=== PATIENT | female | born 2000 | race African-American/Black ===

== ENCOUNTER 2024-05-20 17:42 | Emergency (ER) | payer MEDICAID, SELFPAY ==
[2024-05-20 18:40] VITALS: BP 127/78; PULSE 69; RESP 18; TEMP 36.6; O2SAT 98; BMI 35.9
--- NOTE | 2024-05-20 18:44 | ED.GENADULT ---
HPI - General Adult General Chief complaint: Nausea/Vomiting/Diarrhea Stated complaint: dehydration Time Seen by Provider: 05/20/24 22:56 Related Data Allergies Allergy/AdvReac Type Severity Reaction Status Date / Time shellfish derived [shellfish] Allergy Hives Verified 05/20/24 18:43 [facility] Social History Social History Smoked in Last 30 Days: No Use of substances other than those prescribed or required for medical reasons: No Advance Directives: No Advance Directives Information Provided: No Do you have a plan to hurt others: No Plan Patient : No Physical Exam ED Vital Signs: Vital Signs - 24 hr 05/20/24 18:40 05/20/24 20:33 Temperature 98 F 98.2 F Pulse Rate 69 67 Respiratory Rate 18 16 Blood Pressure 127/78 121/78 Pulse Oximetry 98 98 Oxygen Delivery Method Room Air Room Air BMI result Body Mass Index 35.9 Course Course Course Narrative: This is a Rapid Medical Examination (RME) performed by Dana Joseph PA-C in triage. Full HPI, ROS, assessment and treatment plan per primary provider in the Main ED. 23 yo female 2 wks s/p bariatric surgery in [place] here for eval of dehydration . her diet was recently advances, taking in fluids however has no appetite for solids. called her surgeon, advised to come to ED for IV fluids. no vomiting or diarrhea. Plan: labs Medications Administered Discontinued Medications Generic Name Dose Route Start Last Admin Trade Name Freq PRN Reason Stop Dose Admin Sodium Chloride 1,000 mls @ 999 mls/hr 05/20/24 23:45 05/21/24 00:01 Ns IV 05/21/24 00:45 999 mls/hr .Q1H1M CONCEPCION Administration Medical Decision Making Lab Data 05/20/24 18:55 05/20/24 18:55 Labs: Lab Results 05/20/24 Range/Units 18:55 WBC 13.2 H (4.8-10.8) X10*3/uL RBC 5.01 (4.20-5.50) X10*6/uL Hgb 13.3 (12.0-16.0) g/dl Hct 40.4 (37.0-47.0) % MCV 80.6 (80.0-98.0) fL MCH 26.5 L (27.0-33.0) pg MCHC 32.9 (31.0-35.0) g/dl RDW 12.8 (11.0-16.0) % Plt Count 377 (160-400) X10*3/uL MPV 10.5 (9.4-12.3) fL Immature Gran % (Auto) 0.3 (0.0-0.4) % Neut % (Auto) 74.8 H (45-73) % Lymph % (Auto) 19.1 L (20-40) % [place] % (Auto) 4.9 (2-11) % Eos % (Auto) 0.6 (0-4) % Baso % (Auto) 0.3 (0-2) % Lymph # (Auto) 2.5 (1.2-4.9) X10*3/uL [place] # (Auto) 0.7 (0.1-1.2) X10*3/uL Eos # (Auto) 0.1 (0.0-0.4) X10*3/uL Baso # (Auto) 0.0 (0.0-0.2) X10*3/uL Abs Immat Gran (auto) 0.04 H (0.00-0.03) X10*3/uL Absolute Neuts (auto) 9.9 H (2.0-8.3) x10*3/uL Absolute Nucleated RBC 0.000 (0.0-0.012) X10*3/uL Nucleated RBC % (auto) 0.0 (0.0-0.2) /100WBC Sodium 138 (135-145) mmol/L Potassium 4.1 (3.3-5.1) mmol/L Chloride 103 (96-108) mmol/L Carbon Dioxide 23 (22-29) mmol/L Anion Gap 16 (12-20) BUN 11 (9-16) mg/dL Creatinine 0.72 (0.5-1.4) mg/dL Estim Creat Clear Calc 136.9 Estimated GFR > 60 Random Glucose 64 (60-115) mg/dL Calcium 9.8 (8.4-10.2) mg/dL Magnesium 1.8 (1.6-2.6) mg/dL Total Bilirubin 0.5 (0.0-1.0) mg/dL AST 21 (5-31) U/L ALT 23 (0-31) U/L Alkaline Phosphatase 70 (39-117) U/L Total Protein 8.4 H (6.5-8.0) g/dL Albumin 4.5 (3.5-5.0) g/dL Lipase 30 (8-78) U/L Beta HCG, Quant < 2 mIU/mL Discharge Plan Discharge Clinical Impression: Acid reflux Patient Disposition: Home, Self-Care Instructions: Dehydration (ED) Referrals: Physician,Unknown J [Physician] - 05/25/24 (Please follow-up with ) Print Language: Icelandic
[2024-05-20 18:59] LABS: MANUAL DIFF FLAG NO
[2024-05-20 19:20] LABS: Alanine Aminotransferase 23 U/L (0-31); Albumin Level 4.5 g/dL (3.5-5.0); Alkaline Phosphatase 70 U/L (39-117); Anion Gap 16 (12-20); Aspartate Amino Transferase 21 U/L (5-31); Bilirubin Total 0.5 mg/dL (0.0-1.0); Blood Urea Nitrogen 11 mg/dL (9-16); Calcium 9.8 mg/dL (8.4-10.2); Carbon Dioxide 23 mmol/L (22-29); Chloride 103 mmol/L (96-108); Creatinine Clr Calc Pharmacy 136.9; Estimated Glomerular Filt Rate > 60; Glucose Random 64 mg/dL (60-115); Lipase 30 U/L (8-78); Magnesium 1.8 mg/dL (1.6-2.6); Potassium 4.1 mmol/L (3.3-5.1); Sodium 138 mmol/L (135-145); Total Protein 8.4 g/dL (6.5-8.0)
[2024-05-20 19:21] LABS: Basophils Percent Auto 0.3 % (0-2); Eosinophils Absolute Auto 0.1 X10*3/uL (0.0-0.4); Eosinophils Percent Auto 0.6 % (0-4); Hematocrit 40.4 % (37.0-47.0); Hemoglobin 13.3 g/dl (12.0-16.0); Imm Gran Abs Auto 0.04 X10*3/uL (0.00-0.03); Imm Gran Pct Auto 0.3 % (0.0-0.4); Lymphocytes Absolute Auto 2.5 X10*3/uL (1.2-4.9); Lymphocytes Percent Auto 19.1 % (20-40); Mean Corpuscular HGB Conc 32.9 g/dl (31.0-35.0); Mean Corpuscular Hemoglobin 26.5 pg (27.0-33.0); Mean Corpuscular Volume 80.6 fL (80.0-98.0); Mean Platelet Volume 10.5 fL (9.4-12.3); Monocytes Absolute Auto 0.7 X10*3/uL (0.1-1.2); Monocytes Percent Auto 4.9 % (2-11); Neutrophils Absolute Auto 9.9 x10*3/uL (2.0-8.3); Neutrophils Percent Auto 74.8 % (45-73); Platelet Count 377 X10*3/uL (160-400); Red Blood Count 5.01 X10*6/uL (4.20-5.50); Red Cell Distribution Width 12.8 % (11.0-16.0); White Blood Count 13.2 X10*3/uL (4.8-10.8)
[2024-05-20 19:29] LABS: HCG Quantitative < 2 mIU/mL
[2024-05-20 20:33] VITALS: BP 121/78; PULSE 67; RESP 16; TEMP 36.8; O2SAT 98
--- OUTSIDE RECORDS SUMMARY | 2024-05-20 22:49 | XMS_ITS | Clinical Summary ---
Author Organization [facility] spital Address [address] [place] [address] Phone Care Team Providers Care Stretcher Operator Name Role Phone Christina Nguyen Fabby SHALE PLANER OPERATOR HELPER Unavailable [phone] Shaylee Pace Primary Care Provider [phone] [facility] Unavailable Medications chlorhexidine (Peridex) 0.12 % solution Dose: 0.018 g, Dose Amount: 15 mL, Swish & Spit, BID, Special Instructions: start tomorrow. morning and night swish and spit; do not swallow. use x 1 week, Dispense Quantity: 473 mL, Entered: 10/06/21 14:46:00 EDT, [facility]/pharmacy #[id number] 10/06/2021 Active Immunizations Name Administration Dates Next Due DTaP 11/13/2005, 3,07/17/2002,05/19/2002, 2001 HPV, Unspecified 10/15/2012 Hep A, Unspecified 01/02/2010,09/27/2008 Hep B, Unspecified 07/17/2002,05/19/2002, 002 HiB, unspecified 01/27/2003,05/19/2002, 2 IPV 11/13/2005,07/17/2002,05/19/2002 ,2001 Influenza, Unspecified 02/14/2012,12/18/2010, MMR 11/13/2005,11/12/2002 Meningococcal ACWY, unspecified 10/15/2012 Pneumococcal Conjugate PCV 13 09/16/2002, 003,05/19/2002 Tdap 10/12/2012 Varicella 05/21/2006,11/12/2002 Social History Tobacco Use Types Packs/Day Years Used Date Smoking Tobacco: Never Assessed Comments Unknown Sex and Gender Information Value Date Recorded Sex Assigned at Not on file Legal Sex Female 6:40 PM EDT Gender Identity Not on file Sexual Orientation Not on file Last Filed Vital Signs Vital Sign Reading Time Taken Comments Blood Pressure 112/49 10/06/2021 3:55 PM EDT Pulse 72 10/06/2021 3:55 PM EDT Temperature - - Respiratory Rate 16 10/06/2021 3:55 PM EDT Oxygen Saturation 99% 10/06/2021 3:55 PM EDT Inhaled Oxygen Concentration - - Weight 108 kg (238 lb 12.1 oz) 10/06/2021 2:54 P M EDT Height 162.5 cm (5' 3.98 ) 10/06/2021 2:54 PM ED T Body Mass Index 41.01 10/06/2021 2:54 PM EDT Plan of Treatment Health Maintenance Due Date Last Done Comments HIV Screening 2001 HPV Vaccines (2 - 2-dose series) 04/16/2013 10/15/2012 Hepatitis C Screening 10/10/2019 DTaP/Tdap/Td Vaccines (7 - Td or Tdap) 10/12/2022 10/12/2012, 11/13/2005, 01/27/2003, Additional history exists COVID-19 Vaccine ( season) 2023 Influenza Vaccine (#1) 2023 2, 12/18/2010, 01/02/2010 Hepatitis B Vaccines Completed 07/17/2002, 05/19/2002, 2001 Pneumococcal Vaccine: Pediatrics (0 to 5 Years) and At-Risk Patients (6 to 64 Years) Aged Out 09/16/2002, 07/17/2002, 05/19/2002 No longer eligible based on patient's age to complete this topic HIB Vaccines Completed 01/27/2003, 04/23, 2001 IPV Vaccines Completed 11/13/2005, 06/21, 05/19/2002, Additional history exists MMR Vaccines Completed 11/13/2005, 11/12/2002 Varicella Vaccines Completed 05/21/2006, 11/12/2002 Hepatitis A Vaccines Completed 01/02/2010, 09/28/19 09 Meningococcal Vaccine Aged Out 10/15/2012 No kerri gavin eligible based on patient's age to complete this topic Rotavirus Vaccines Aged Out No longer eligible based on patient's age to complete this topic Care Teams Stretcher Operator Relationship Specialty Start Date End Date Christina Nguyen, SHALE PLANER OPERATOR HELPER [address] [facility] [address] [place] [address] PCP - Clinical PCP 04/13/15 Shaylee Pace [address] [place] [address] PCP - General 04/23/18 [facility] [address] [place] [address] PCP - Insurance PCP 04/23/18
--- OUTSIDE RECORDS SUMMARY | 2024-05-20 22:49 | XMS_ITS | Encounter Summary ---
Author Organization [facility] Address [address] [facility] Main Number: [phone] (12/11) [place] [address] Care Team Providers Care Scientific Writer Name Role Phone Shaylee Pace MD Unavailable [phone] Samuel Pace Primary Care Provider Unavailabl e Shaylee Pace MD Primary Care Provider [phone] Jillian Chung RN Unavailable Unavailable Reason for Visit * Reason Comments Other Encounter Details Date Type Department Care Team (Late st Contact Info) Description 10/16/2017 Refill Pediatric Diabetes and Endocrinology [address] [place] [phone] Felisha Kothari MD Hyperprolactinemia Social History Tobacco Use Types Packs/Day Years Used Date Smoking Tobacco: Never Smokeless Tobacco: Never Alcohol Use Standard Drinks/Week Comments No 0 (1 standard drink = 0.6 oz pur e alcohol) Sex and Gender Information Value Date Recorded Sex Assigned at Female 09/04/2022 3:11 PM EDT Gender Identity Female 05/17/2021 7:18 AM EST Sexual Orientation Patient's sexual zak entation is not listed 04/01/2023 10:52 AM EST documented as of this encounter Plan of Treatment Not on file documented as of this encounter Visit Diagnoses Diagnosis Hyperprolactinemia Other and unspecified anterior pituitary hyperfunction documented in this encounter Care Teams Scientific Writer Relationship Specialty Start Date End Date Shaylee Pace MD [address] [address] PCP - Insurance 04/04/17 12/16/22 Samuel Pace PCP - General 04/12/17 12/18/17 Shaylee Pace MD The [address] [address] PCP - General 02/09/19 Jillian Chung, RN Registered Nurse Gastroenterology 05/29/23 documented as of this encounter
--- OUTSIDE RECORDS SUMMARY | 2024-05-20 22:49 | XMS_ITS | Encounter Summary ---
Author Organization [facility] Address [address] Main Number: [phone] (12/11) [place] [address] Care Team Providers Care Battery Plate Remover Name Role Phone Shaylee Pace MD Primary Care Provider [phone] Jillian Chung RN Unavailable Unavailable Reason for Visit * Reason Onset Date Comments Procedure 07/12/2023 Encounter Details Date Type Department Care Team (Late st Contact Info) Description 07/12/2023 Telephone Bariatrics [address] [place] [address], [address] [place] [address] Rigoberto Barnard MD [address] [place] [address], [address] [place] [address] Procedure Social History Tobacco Use Types Packs/Day Years Used Date Smoking Tobacco: Never Passive Smoke Exposure: Never Smokeless Tobacco: Never Alcohol Use Standard Drinks/Week Comments Yes 0 (1 standard drink = 0.6 oz pur e alcohol) 1-2x monthly Housing Answer Date Recorded What is your living situation today? I have a [facility] to live 09/06/2022 Sex and Gender Information Value Date Recorded Sex Assigned at Female 09/04/2022 3:11 PM EDT Gender Identity Female 05/17/2021 7:18 AM EST Sexual Orientation Patient's sexual zak entation is not listed 04/01/2023 10:52 AM EST documented as of this encounter Miscellaneous Notes * Telephone Encounter - Anabelle Yang - 08/21/2023 12:14 PM EDT Patient Reported Reason for Call Patient presents with Procedure pt at [phone] pt says shes cleared fo gastric sleeve surgery SHE WANTS TO schedule her surgery date please. I don't see any pending items in epic. Tat 1 week was informed (5 business days) * Telephone Encounter - Katie Stephanie - 07/12/2023 12:31 PM EDT Patient Reported Reason for Call Patient presents with Appointment Patient requesting call back re final review process Pls call documented in this encounter Plan of Treatment Not on file documented as of this encounter Visit Diagnoses Not on filedocumented in this encounter Care Teams Battery Plate Remover Relationship Specialty Start Date End Date Shaylee Pace MD [address] [address] PCP - General 02/09/19 Jillian Chung, ELIS Registered Nurse Gastroenterology 05/29/23 documented as of this encounter
--- OUTSIDE RECORDS SUMMARY | 2024-05-20 22:49 | XMS_ITS | Encounter Summary ---
Author Organization [facility] r Address [address] Main Number: [phone] (12/11) [place] [address] Care Team Providers Care Engineering Supplies Sales Name Role Phone Shaylee Pace MD Unavailable [phone] Shaylee Pace MD Primary Care Provider [phone] Jillian Chung RN Unavailable Unavailable Reason for Visit * Reason Onset Date Comments Appointment 08/08/2020 Please reach out to pt to eb. Encounter Details Date Type Department Care Team (Late st Contact Info) Description 08/08/2020 Telephone Pediatric Diabetes and Endocrinology [address] [facility] [address] [place] [phone] Felisha Kothari MD Appointment (Please reach out to pt to eb. ) Social History Tobacco Use Types Packs/Day Years Used Date Smoking Tobacco: Never Smokeless Tobacco: Never Alcohol Use Standard Drinks/Week Comments No 0 (1 standard drink = 0.6 oz pur e alcohol) Housing Answer Date Recorded What is your living situation today? I have a [facility] place to live 02/09/2019 Sex and Gender Information Value Date Recorded Sex Assigned at Female 09/04/2022 3:11 PM EDT Gender Identity Female 05/17/2021 7:18 AM EST Sexual Orientation Patient's sexual zak entation is not listed 04/01/2023 10:52 AM EST documented as of this encounter Miscellaneous Notes * Telephone Encounter - Genesis Alan - 08/08/2020 9:34 AM EDT Patient Reported Reason for Call Patient presents with ??? Appointment Please reach out to pt to eb. documented in this encounter Plan of Treatment Not on file documented as of this encounter Visit Diagnoses Not on filedocumented in this encounter Care Teams Engineering Supplies Sales Relationship Specialty Start Date End Date Shaylee Pace MD [address] [address] PCP - Insurance 04/04/17 12/16/22 Shaylee Pace MD [address] [address] PCP - General 02/09/19 Jillian Chung, RN Registered Nurse Gastroenterology 05/29/23 documented as of this encounter
--- OUTSIDE RECORDS SUMMARY | 2024-05-20 22:49 | XMS_ITS | Referral Summary ---
Author Organization [facility] Address [address] Main Number: [phone] (12/11) [place] [address] Care Team Providers Care Professional Model Name Role Phone Shaylee Pace MD Primary Care Provider [phone] Jillian Chung RN Unavailable Unavailable Allergies Active Allergy Reactions Criticality Noted Date Comments Shellfish Containing Products Unknown 2021 Shrimp Rash Low 04/04/2017 Medications Medication Sig Dispensed Refills Start Date End Date Status ergocalciferol (ERGOCALCIFEROL) 1,250 mcg (50,000 unit) capsuleIndications:Vi tamin D deficiency Take 1 capsule (50,000 Units total) by mouth once a week for 20 doses. 4 capsule 4 03/21/2022 Active PEN NEEDLE, DIABETIC 32 GAUGE X 5/32 Use to inject ozempic under the skin once every week 10 each 3 03/26/2022 Active dulaglutide (TRULICITY) 4.5 mg/0.5 mL PEN Inject 4.5 mg under the skin once a week. 2 mL 5 02/20/2023 Active dulaglutide (TRULICITY) 3 mg/0.5 mL PEN Inject 3 mg under the skin once a week. Take 3 mg once a week for four weeks then increase to 4.5 mg 2 mL 02/20/2023 Active dulaglutide (TRULICITY) 1.5 mg/0.5 mL PEN Take 1.5 mg weekly for four weeks then increase dose to 3 mg weeky 2 mL 02/20/2023 Active dulaglutide (TRULICITY) 0.75 mg/0.5 mL PEN Inject 0.75 mg under the skin once a week. Take 0.75 mg once a week for four weeks then increase to 1.5 mg 2 mL 02/20/2023 Active cabergoline (DOSTINEX) 0.5 mg tablet Take 2 tablets (1 mg total) by mouth 2 (two) times a week. 48 tablet 3 02/21/2023 Active senna-docusate (SENNOSIDES-DOCUSATE SODIUM) 8.6-50 mgIndications:Slow transit constipation Take 1 tablet by mouth daily. 30 tablet 03/19/2023 Active Active Problems Problem Noted Date Diagnosed Date Adjustment disorder 04/26/2023 Overview (04/26/2023): Bariatric Clinical Evaluation Hyperprolactinemia 12/20/2017 Overview (09/06/2022): Nikhil reports that since last visit she has been doing well. She reports she has been taking the cabergoline 0.5 mg twice a week. She reports she took it until 1.5 week ago when she run out of it. Nikhil denies any headache and breast discharge. 05/11/2021 Her last labs indicated high prolactin levels She still denies any visual disturbances or galactorrhea 11/02/21 She has been off medication for a couple of weeks, but no symptoms yet 03/08/22 Prescription was renewed at the last encounter She had been off treatment for a few weeks so it made no sense to test Now, says she has been adherent to the protocol of twice a week administration of the medication 09/06/22 Last prolactin level was still elevated She has not taken any medication 'for a while' However, she denies any lactorrhea She was on 1.0 mg of Cabergoline twice a week Assessment & Plan (09/06/2022 8:37 PM EDT): Since she has not has any symptoms of elevated prolactin even off the medication, it is time to re-evaluate the need for treatment We will hold renewal of treatment until after the testing today Assessment & Plan (03/08/2022 5:29 PM EST): Will renew her prescription for another six months, but she will be tested today and medication dose adjusted as needed Assessment & Plan (11/07/2021 10:03 AM EDT): She will resume treatment once she gets her script filled Assessment & Plan (05/13/2021 7:34 PM EST): We will be checking her prolactin levels this visit Will adjust the medication if indicated Assessment & Plan (01/12/2021 8:09 PM EDT): Nikhil is apparently doing well as she has been taking the cabergoline until she run out last week. I explained to her that if that happens again before the next appointment, to call the office so a new prescription can be sent. Nikhil was started again on the cabergoline given the elevated prolactin. The brain MRI confirmed the microprolactinoma. I will get a new prolactin level. Based on results I will decide if I need to make changes on the cabergoline dose. Assessment & Plan (10/13/2020 4:27 PM EDT): Nikhil is apparently doing clinically well as she is not presenting with any sign of hyperprolactinemia. In the past, her prolactin level showed to be very elevated. A brain MRI showed a very small (2 mm) adenoma. Nikhil was started on cabergoline. Her prolactin levels normalized. I will get a new prolactin level. Based on results I will decide if I need to restart the cabergoline. Assessment & Plan (09/11/2018 3:37 PM EDT): [place] is apparently doing well. She is clinically asymptomatic regarding presenting with galactorrhea or with headache, but she is still not having periods. Her last prolactin level showed to be normal. No changes in the cabergoline were made. I will obtain a new prolactin level today. If it shows to be normal or low I will obtain a follow up brain MRI to evaluate for the microprolactinoma. Based on prolactin levels I will decide if I need to make changes in the cabergoline dose. Assessment & Plan (05/16/2018 12:59 PM EST): [place] is apparently doing well as apparently she has been compliant with the cabergoline. She has not been presenting with any galactorrhea. Her prolactin level has been slowly coming down, but it has to be noted that in the past [place] has not been very compliant with the cabergoline. The brain MRI showed a microprolactinoma. I will like to get her prolactin in normal range before ordering a follow up MRI. I will obtain a new prolactin level. Based on results I will decide if I have to make any changes in the cabergoline dose. Assessment & Plan (12/20/2017 7:38 AM EDT): [place] is not doing very well. [place] has also not been compliant with the cabergoline. Last visit she was given enough prescriptions until today's visit. Her last prolactin level showed to be elevated but lower than prior. I will get a new prolactin level. Based on results I will decide the dose to restart the cabergoline if needed. Her initial brain MRI showed a microprolactinoma. [place] will required a follow up brain MRI in the near future. But before this, I will like to get the prolactin to a normal level. For this she has to be compliant with the cabergoline. Secondary amenorrhea 04/04/2017 Overview (09/06/2022): Nikhil reports she has not had her menarche yet. 11/02/21 She has continued to have irregular menses 03/08/22 Menses have become more or less regular 09/06/22 Apparently, despite renewed weight gain, her menses are still regular She has had six in the past six months She is expecting another one next week. Assessment & Plan (09/06/2022 8:42 PM EDT): We will continue to monitor the oligomenorrhea Assessment & Plan (01/12/2021 8:15 PM EDT): Nikhil is not doing well. She has not had her menarche yet. Most probably this is secondary to the hyperprolactinemia as her prolactin level showed to be very elevated during last visit. The LH, FSH, and estradiol showed to be low. This could be secondary to the elevated prolactin. In the past (about two years ago) a pelvic US showed normal internal female genitalia. There was an endometrial stripe. I will get follow up labs (LH, FSH, and estradiol). Based on results I will decide the management to follow. Labs obtained last visit showed very elevated insulin. Insulin resistance can interfere with the normal ovarian function. Assessment & Plan (10/13/2020 4:32 PM EDT): Nikhil is not doing well. She has not had her menarche yet. In the past she presented with very elevated prolactin level, which was thought that could be the reason for her amenorrhea. The prolactin level came down to normal range, Nikhil did not have her menarche. On physical exam Nikhil has been presenting with acanthosis, which is an indirect sign of insulin resistance. Insulin resistance can interfere with the normal ovarian function. Given the insulin resistance, Nikhil was started on metformin, which she took for a short period of time. She did not have her menarche. Pelvic US in the past, showed to be normal. I will like to get all new set of labs to evaluate for primary amenorrhea. Based on results I will decide the management to follow. If all labs show to be normal, I discussed with Nikhil that I will like to start her on OCP. Assessment & Plan (09/11/2018 3:45 PM EDT): [place] is not doing well. She has not had her menarche. At the beginning her prolactin level was very elevated, which could be the reason for her amenorrhea. then her insulin level also showed to be very elevated. Having insulin resistance can interfere with the normal ovarian function. Her testosterone level showed to be normal. Now that her prolactin level showed to be normal last visit and apparently she has been compliant with the cabergoline, and apparently she has also been compliant with the metformin, which helps with the insulin resistance, I was expecting her to present with her menarche. I will like to get a pelvic US to evaluate internal organs. If it shows to be normal, I will consider starting OCP to see if [place] has her menarche. I will continue with the metformin. I will continue monitoring. Assessment & Plan (05/16/2018 12:49 PM EST): [place] still has not had her menarche. It could be secondary to her elevated prolactin level as prolactin interferes with the normal ovarian function. Also her insulin showed to be very elevated, which can also interfere with her normal ovarian function. For these two reasons [place] was started on cabergoline and metformin. Cabergoline helps in decreasing the prolactin level and metformin helps with the insulin resistance. Regarding her elevated insulin, explained to [place] that weight control is the best intervention for her to decrease the insulin resistance. I will obtain follow up labs. Based on results I will decide further intervention. Assessment & Plan (12/20/2017 7:36 AM EDT): [place] is not doing well as she has not had her menarche. This could be secondary to her hyperprolactinemia as elevated prolactin can interfere with normal periods. Also her insulin showed to be elevated. Having insulin resistance can interfere with the normal ovarian function.[place] is presenting with obesity. Being obese increases the insulin resistance. Discussed with the mother and [place] that the best intervention to decrease the insulin resistance is weight control. I will repeat the evaluation for amenorrhea. Based on results I will decide if other intervention is needed. [place] might benefit from metformin, which helps with the insulin resistance. Assessment & Plan (08/15/2017 10:35 AM EDT): [place] is not doing well. She has not had her menarche. Her prolactin showed to be elevated last visit, reason why she was started on cabergoline after brain MRI showed a very small adenoma. I will obtain follow up labs to evaluate for prolactin level. If it shows to be elevated I will consider increasing the cabergoline. If prolactin shows to be normal, I will keep the same cabergoline dose. Her insulin last visit showed to be elevated. Having insulin resistance could be another reason for [place] to be presenting with primary amenorrhea, as insulin resistance can interfere with the normal ovarian function. Discussed with the mother that the best intervention for insulin resistance is weight control with healthy lifestyle. If prolactin level shows to be normal I will start [place] on metformin to help with the insulin resistance. Assessment & Plan (04/04/2017 5:56 PM EST): [place] is presenting with primary amenorrhea as she has not had her menarche. [place] could be following her maternal pattern as her mother had a late menarche. On the other hand [place] could be presenting with a prolactinoma as her prolactin level showed to be very elevated. Having elevated prolactin could be another reason for [place] not having her menarche. Besides the primary amenorrhea, [place] is not presenting any other sign or symptom of hyperprolactinemia. I will like to repeat all the labs. If prolactin shows to be elevated, I will like to obtain a brain MRI to evaluate for prolactinoma. Then I will like to start her on cabergoline a dopamine agonist that works inhibiting the production of prolactin decreasing this way the size of the prolactinoma. On physical exam [place] is presenting with acanthosis, which is an indirect sign of insulin resistance. Having insulin resistance can interfere with the normal ovarian function. I will obtain an insulin level. Based on results I will consider starting metformin as it helps with the insulin resistance. 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 She reports she has been controlling what she has been eating. She eats some fruits and vegetables. She has not been active. 05/11/2021 A long standing problem, could have contributed to her delayed amenorrhea She has made some efforts at weight control 11/02/21 She has been started on Dulaglutide by Dr. Espinoza This should promote weight loss In the past interval she has lost about 4 kg 03/08/22 She has continued to lose weight - thanks to dulaglutide injections 09/06/22 She apparently lost access to her semaglutide injections - unexplained insurance issues No treatment soon after the last encounter six months ago She has gone up in weight from 228 lbs to 245 lbs She is now in the bariatric surgery program for evaluation of the procedure Assessment & Plan (09/06/2022 8:55 PM EDT): I advised her to contact dr Espinoza with all questions related to Semaglutide and insurance coverage I have very little experience with this However she admits that she gained a lot of weight after the injections stopped Now, she is in the program for bariatric surgery Assessment & Plan (03/08/2022 5:30 PM EST): Encouraged to stay on course with weight loss program Assessment & Plan (11/07/2021 10:06 AM EDT): The hope is that significant weight loss will be accompanied by a normalized hormonal axes, including regular menses We will monitor this closely Assessment & Plan (05/13/2021 7:45 PM EST): We will continue the prescription for metformin We will check for a1c at the end of this visit We are encouraging her to maintain the weight control processes that seem to have worked for her. Assessment & Plan (01/12/2021 8:15 PM EDT): Nikhil did not do well since last visit. She gained 3 lbs. Her weight gain is secondary to her increased caloric intake and lack of physical activity. I discussed with her the importance of weight control and the complications of obesity. On physical exam Nikhil is presenting with acanthosis, which is an indirect sign of insulin resistance. Having insulin resistance puts Nikhil at risk for developing type 2 diabetes mellitus. I discussed with Nikhil that the best intervention to avoid becoming a diabetic is weight control with healthy lifestyle. There is no need for follow up labs. The total time for this encounter took at least 30 min including reviewing the chart, the person to person encounter (obtaining the history, physical exam, discussing management, counseling, ordering labs), and creating this note. Assessment & Plan (10/13/2020 4:37 PM EDT): Nikhil did not do well since last visit. She gained 34 lbs in two years. Her weight gain is her caloric intake, lack of physical activity, and eating habits. I discussed with Nikhil that she cannot keep doing what she is doing of eating only once a day. I discussed with her the importance of eating the three meals a day. I discussed with her healthy eating habits and physical activity. I discussed with Nikhil the importance of weight control and the complications of obesity. On physical exam, Nikhil is presenting with acanthosis, which is an indirect sign of insulin resistance. Having insulin resistance puts her at risk for developing type 2 diabetes mellitus. I discussed with her that the best intervention to avoid becoming a diabetic is weight control with healthy lifestyle. Having insulin resistance can also interfere with the normal ovarian function. I will get screening labs. Based on results I will decide if further intervention is needed. I will monitor weight. The total time for this encounter took at least 30 min including reviewing the chart, the person to person encounter (obtaining the history, physical exam, discussing management, counseling, ordering labs), and creating this note. Assessment & Plan (09/11/2018 3:41 PM EDT): [place] did not do well. She gained 5 lbs since last visit. Her weight gain is secondary to her increased caloric intake and lack of physical activity. I discussed with her the importance of weight control and the complications of obesity. On physical exam [place] is presenting with acanthosis, which is an indirect sign of insulin resistance. Having insulin resistance is a risk factor for her to develop type 2 diabetes. I discussed with her that the best intervention to avoid becoming a diabetic is weight control with healthy lifestyle. We discussed about healthy eating habits and physical activity. There is no need for follow up labs today. I will continue monitoring weight. Assessment & Plan (05/16/2018 12:40 PM EST): [place] did not do well since last visit. She gained 6 lbs. Her weight gain is secondary to her increased caloric intake and lack of physical activity. I discussed with her the importance of weight control and the complications of obesity. Last labs showed a very elevated insulin, which can put her at risk for developing type 2 diabetes. Discussed with her that the best intervention to avoid becoming a diabetic is weight control with healthy lifestyle. Discussed with her about following all the recommendations the dietitian gave her. I also encouraged her to be more active. I will obtain follow up labs. Based on results I will decide further management. Assessment & Plan (12/19/2017 4:20 PM EDT): [place] is not doing well. She gained several lbs since last visit. Her weight gain is secondary to her increased caloric intake and lack of physical activity. I discussed with her and her mother the importance of weight control and the complications of obesity. I discussed with [place] the importance of eating breakfast. I asked her to try to avoid skipping it as it is the most important meal of the day. I will obtain screening labs. I will like [place] and her mother to meet with our dietitian. They already made the appointment with her for next week. Assessment & Plan (08/15/2017 10:20 AM EDT): [place] did not do good. She gained several lbs since last visit. Her weight gain is secondary to her increased caloric intake and lack of physical activity. Discussed with the mother and [place] the importance of weight control and the complications of obesity. On physical exam she is presenting with acanthosis, which is an indirect sign of insulin resistance. Her insulin last visit showed to be very elevated for a normal glucose. Having insulin resistance is a risk factor to develop type 2 diabetes. Discussed with the mother and [place] that the best intervention to avoid becoming a diabetic is weight control with healthy lifestyle. Discussed with both of them about healthy lifestyle. Assessment & Plan (04/04/2017 6:00 PM EST): It is secondary to her increased caloric intake and lack of physical activity. Discussed with the mother the importance of weight control and the complications of obesity. Discussed with the mother about healthy lifestyle. On physical exam [place] is presenting with acanthosis, which is an indirect sign of insulin resistance. Having insulin resistance is a risk factor for her to become a diabetic. Discussed with the mother that the best intervention to avoid becoming a diabetic is weight control with healthy lifestyle. I will obtain labs for screening for diabetes. Her last HbA1c obtained by her PCP showed to be normal. Migraine 03/10/2014 Immunizations Name Administration Dates Next Due Influenza unspecified, historical 02/02/2017 Social History Tobacco Use Types Packs/Day Years Used Date Smoking Tobacco: Never Passive Smoke Exposure: Never Smokeless Tobacco: Never Tobacco Cessation:Counseling Given: No Alcohol Use Standard Drinks/Week Comments Yes 0 (1 standard drink = 0.6 oz pur e alcohol) 1-2x monthly Housing Answer Date Recorded What is your living situation today? I have a [facility] place to live 09/06/2022 Sex and Gender Information Value Date Recorded Sex Assigned at Female 09/04/2022 3:11 PM EDT Gender Identity Female 05/17/2021 7:18 AM EST Sexual Orientation Patient's sexual zak entation is not listed 04/01/2023 10:52 AM EST Last Filed Vital Signs Vital Sign Reading Time Taken Comments Blood Pressure 99/65 08/09/2023 3:04 PM EDT Pulse 56 08/09/2023 3:04 PM EDT Temperature 16.1 ??C (61 ??F) 02/20/2023 2:37 PM EDT Respiratory Rate 18 08/06/2022 3:09 PM EDT Oxygen Saturation 99% 08/09/2023 3:04 PM EDT Inhaled Oxygen Concentration - - Weight 110.2 kg (243 lb) 08/09/2023 3:04 PM EDT Height 164 cm (5' 4.57 ) 05/14/2023 9:01 AM EST Body Mass Index 40.98 05/14/2023 9:01 AM EST Plan of Treatment Not on file Procedures Procedure Name Priority Date/Time Associated Diagnosis Comments LIPID PANEL Routine 02/20/2023 3:14 PM EDT Class 3 obesity Pituitary microadenoma HEMOGLOBIN A1C Routine 02/20/2023 3:14 PM EDT Class 3 obesity Pituitary microadenoma from Last 3 Months or Most Recently Relevant to Health Maintenance Results * Hemoglobin a1c (02/20/2023 3:14 PM EDT) Hemoglobin A1C 5.2 4.0 - 6.0 % 02/20/2023 5:08 PM EDT [facility] Comment:The Real hemoglobi n A1c assay should not be used to diagnose or monitor diabetes in patients with altered red cell lifespan, such as homozygous hemoglobin variants, Hb SC, HbF > 5%, and hemolytic anemia. 02/20/2023 3:14 PM EDT 02/20/2023 3:15 PM EDT Vani Espinoza MD [facility]OD [facility] CLIA [id number] [address] * (ABNORMAL) Lipid panel (02/20/2023 3:14 PM EDT) Cholesterol 192 <200 mg/dL 02/20/2023 5:12 PM EDT [facility] Comment:CHOLESTEROL RISK CLA SSIFICATION: <200 MG/DL = LOW RISK, 200 to 239 MG/DL = BORDERLINE/HIGH RISK, >239 MG/DL = HIGH RISK. Triglyceride 95 40 - 200 MG/DL 02/20/2023 5:12 PM EDT [facility] HDL Cholesterol 42 >34 mg/dL 5:12 PM EDT [facility] Comment:HDL CHOLESTEROL RISK CLASSIFICATION: >55 MG/DL = LOW RISK, <35 MG/DL = HIGH RISK. LDL Cholesterol,Calcu lated 131(H) <130 mg/dL 02/20/2023 5:12 PM EDT [facility] Comment:LDL CHOLESTEROL RISK CLASSIFICATION: <130 MG/DL = LOW RISK, 130 to 159 MG/DL = BORDERLINE RISK, >159 MG/DL = HIGH RISK. 02/20/2023 3:14 PM EDT 02/20/2023 3:15 PM EDT Vani Espinoza MD [facility]LOOD [facility] CLIA [id number] [address] [place] [address], from Last 3 Months or Most Recently Relevant to Health Maintenance Care Teams Professional Model Relationship Specialty Start Date End Date [place] [id number] PCP - General 02/09/19 Jillian Chung, RN Registered Nurse Gastroenterology 05/29/23
--- OUTSIDE RECORDS SUMMARY | 2024-05-20 22:49 | XMS_ITS | Encounter Summary ---
Author Organization [facility] Address 1 [facility] Main Number: [phone] (12/11) [place] [address] Care Team Providers Care Dust Handler Name Role Phone Shaylee Pace MD Unavailable [phone] Samuel Pace Primary Care Provider Unavailabl e Shaylee Pace MD Primary Care Provider Jillian Chung RN Unavailable Unavailable Encounter Details Date Type Department Care Team (Late st Contact Info) Description 03/10/2014 Documentation Pediatric Neurology [address] [facility] [place] [phone] Sanford Dsouza MD, PhD [address] [place] [address] Social History Tobacco Use Types Packs/Day Years Used Date Smoking Tobacco: Never Assessed Sex and Gender Information Value Date Recorded Sex Assigned at Female 09/04/2022 3:11 PM EDT Gender Identity Female 05/17/2021 7:18 AM EST Sexual Orientation Patient's sexual zak entation is not listed 04/01/2023 10:52 AM EST documented as of this encounter Miscellaneous Notes * Office Visit - Sanford Dsouza MD, PhD - 03/10/2014 10:35 AM EST [facility] Visit Weight: 129.58 lb. (58.90 kg.) Height: 57.68 in. (146.5 cm.) Head circumference: 21.85 in. (55.5 cm.)Pulse rate: 85 Blood Pressure: 109/69 mm Hg Review of Systems General: Complains of headache. Denies fevers, chills, sweats, anorexia, fatigue, weight loss. Eyes: Complains of eye pain, photophobia. Denies blurring, diplopia, irritation. Ears/Nose/Throat: Complains of nasal congestion. Denies earache, ear discharge, tinnitus, decreasedhearing. Cardiovascular: Denies palpitations, syncope. Respiratory: Denies cough, dyspnea, hemoptysis. Gastrointestinal: Denies vomiting, diarrhea. Genitourinary: Denies dysuria, hematuria. Musculoskeletal: Denies joint pain, joint swelling. Skin: Denies itching. Neurologic: Complains of see HPI. Denies see HPI. Psychiatric: Denies anxiety, memory loss. Endocrine: Denies cold intolerance, heat intolerance. Heme/Lymphatic: Denies bleeding. Allergic/Immunologic: Denies hay fever. Physical Examination Medication Reconciliation No Known Allergies *An active medication list was printed to give to patient or family member. Problems added or changed during this visit: MIGRAINE, COMMON (ICD-346.1) *An active medication list was printed to give to patient or family member. *A Clinical Summary was printed to give to the patient or family member. Included in the Clinical Summary: Clinical Summary Care Plan Cuba Hatch, Thank you for your visit today to [facility] at [facility]. Please call your provider's office right away if today's problem worsens or if the problem is not improving within the time frame discussed today. Instructions were provided to you and/or are listed below. ] documented in this encounter Plan of Treatment Not on file documented as of this encounter Visit Diagnoses Not on filedocumented in this encounter Care Teams Dust Handler Relationship Specialty Start Date End Date Shaylee Pace MD [address] [address] PCP - Insurance 04/04/17 12/16/22 Samuel Pace PCP - General 04/12/17 12/18/17 Sh[place] [address] PCP - General 02/09/19 Jillian Chung, RN Registered Nurse Gastroenterology 05/29/23 documented as of this encounter
--- OUTSIDE RECORDS SUMMARY | 2024-05-20 22:49 | XMS_ITS | Encounter Summary ---
Author Organization [facility] Address 1 [facility] Main Number: [phone] (12/11) [place] [address] Care Team Providers Care School Examiner Name Role Phone Shaylee Pace MD Unavailable [phone] Shaylee Pace MD Primary Care Provider [phone] Jillian Chung RN Unavailable Unavailable Reason for Visit * Reason Onset Date Comments Prior Authorization 04/03/2022 Encounter Details Date Type Department Care Team (Late st Contact Info) Description 04/03/2022 Telephone Endocrinology + Nutrition [address] [place] [phone] Vani Espinoza MD [address] [facility] [place] [address] Prior Authorization Social History Tobacco Use Types Packs/Day Years Used Date Smoking Tobacco: Never Smokeless Tobacco: Never Alcohol Use Standard Drinks/Week Comments No 0 (1 standard drink = 0.6 oz pur e alcohol) Housing Answer Date Recorded What is your living situation today? I have a [facility] place to live 11/02/2021 Sex and Gender Information Value Date Recorded Sex Assigned at Female 09/04/2022 3:11 PM EDT Gender Identity Female 05/17/2021 7:18 AM EST Sexual Orientation Patient's sexual zak entation is not listed 04/01/2023 10:52 AM EST COVID-19 Exposure Response Date Recorded In the last 10 days, have yo u been in contact with someone who was confirmed or suspected to have Coronavirus/COVID-19? No / Unsure 03/08/2022 4:01 PM EST documented as of this encounter Miscellaneous Notes * Telephone Encounter - Joelle Mack - 04/04/2022 11:15 AM EST Patient Reported Reason for Call Patient presents with ??? Prior Authorization Fact Finding Questions Medication requesting: semaglutide (Ozempic) 1mg (4 mg/3 mL) pen Medication insurance company: Medicaid [facility] Name[facility]Location: [address] Best call back number: [phone] Permission to leave a detailed message: No Hi, Pt called again for PA request. Thank you. * Telephone Encounter - Debora Ba - 04/03/2022 11:37 AM EST Patient Reported Reason for Call Patient presents with ??? Prior Authorization Fact Finding Questions Medication requesting: semaglutide (Ozempic) 1mg (4 mg/3 mL) pen Medication insurance company: Medicaid [facility] Name/Location: [address] Best call back number: [phone] Permission to leave a detailed message: No documented in this encounter Plan of Treatment Not on file documented as of this encounter Visit Diagnoses Not on filedocumented in this encounter Care Teams School Examiner Relationship Specialty Start Date End Date Shaylee Pace MD The [address] [address] PCP - Insurance 04/04/17 12/16/22 Shaylee Pace MD The [address] [address] PCP - General 02/09/19 Jillian Chung, RN Registered Nurse Gastroenterology 05/29/23 documented as of this encounter
--- OUTSIDE RECORDS SUMMARY | 2024-05-20 22:49 | XMS_ITS | Encounter Summary ---
Author Organization [facility] Address 1 [facility] Main Number: [phone] (12/11) [place] [address] Care Team Providers Care Shop Assistant Name Role Phone Shaylee Pace MD Unavailable [phone] Samuel Pace Primary Care Provider Unavailabl e Shaylee Pace MD Primary Care Provider Jillian Chung RN Unavailable Unavailable Encounter Details Date Type Department Care Team (Late st Contact Info) Description 03/10/2014 Documentation Pediatric Neurology [address] [place] [phone] Sanford Dsouza MD, PhD [address] [place] [address] Social History Tobacco Use Types Packs/Day Years [...] - Sanford Dsouza MD, PhD - 03/10/2014 11:44 AM EST [facility] Visit Weight: 129.58 lb. (58.90 kg.) Height: 57.68 in. (146.5 cm.) Blood Pressure: 105/69 mm Hg Physical Examination Medication Reconciliation No Known Allergies *An active medication list was printed to give to patient or family member. New orders added this vist: Pedi - Sleep Study [n/a] *An active medication list was printed to give to patient or family member. *A Clinical Summary was printed to give to the patient or family member. Included in the Clinical Summary: Clinical Summary Care Plan Martineneeta Hatch, Thank you for your visit today to Neurology at [facility]. Please call your provider's office right away if today's problem worsens or if the problem is not improving within the time frame discussed today. Instructions were provided to you and/or are listed below. New Orders Pedi - Sleep Study ] documented in this encounter Plan of Treatment Not on file documented as of this encounter Visit Diagnoses Not on filedocumented in this encounter Care Teams Shop Assistant Relationship Specialty Start Date End Date Shaylee Pace MD The [address] [address] PCP - Insurance 04/04/17 12/16/22 Samuel Pace PCP - General 04/12/17 12/18/17 Shaylee Pace MD The [address] [address] PCP - General 02/09/19 Jillian Chung, RN Registered Nurse Gastroenterology 05/29/23 documented as of this encounter
--- OUTSIDE RECORDS SUMMARY | 2024-05-20 22:49 | XMS_ITS | Encounter Summary ---
Author Organization [facility] Address [address] [facility] [address] Main Number: [phone] (12/11) [place] [address] Care Team Providers Care Carton Machine Operator Name Role Phone Shaylee Pace MD Unavailable [phone] Shaylee Pace MD Primary Care Provider [phone] Jillian Chung RN Unavailable Unavailable Reason for Visit * Reason Comments Automated Refill Request Encounter Details Date Type Department Care Team (Late st Contact Info) Description 05/11/2018 Refill Pediatric Diabetes and Endocrinology [address] [place] [phone] Felisha Kothari MD Primary amenorrhea Social History Tobacco Use Types Packs/Day Years [...] as of this encounter Visit Diagnoses Diagnosis Primary amenorrhea Absence of menstruation documented in this encounter Care Teams Carton Machine Operator Relationship Specialty Start Date End Date Shaylee Pace MD [address] [address] PCP - Insurance 04/04/17 12/16/22 [place] [address] PCP - General 02/09/19 Jillian Chung, RN Registered Nurse Gastroenterology 05/29/23 documented as of this encounter
--- OUTSIDE RECORDS SUMMARY | 2024-05-20 22:49 | XMS_ITS | Encounter Summary ---
Author Organization [facility] Address 1 [facility] Main Number: [phone] (12/11) [place] [address] Care Team Providers Care Label Fuser Tender Name Role Phone Shaylee Pace MD Unavailable [phone] Shaylee Pace MD Primary Care Provider [phone] Jillian Chung RN Unavailable Unavailable Reason for Visit * Reason Comments Automated Refill Request Encounter Details Date Type Department Care Team (Late st Contact Info) Description 11/18/2021 Refill Endocrinology + Nutrition [address] [place] [phone] Vani Espinoza MD [address] [facility] [place] [address] Social History Tobacco Use Types Packs/Day Years Used Date Smoking Tobacco: Never Smokeless Tobacco: Never Alcohol Use Standard Drinks/Week Comments No 0 (1 standard drink = 0.6 oz pur e alcohol) Housing Answer Date Recorded What is your living situation today? I have a [facility] place to live 11/02/2021 Sex and Gender Information Value Date Recorded Sex Assigned at Female 09/04/2022 3:11 PM EDT Gender Identity Female 05/17/2021 7:18 AM EST Sexual Orientation Patient's sexual zak entation is not listed 04/01/2023 10:52 AM EST COVID-19 Exposure Response Date Recorded In the last month, have you been in contact with someone who was confirmed or suspected to have Coronavirus / COVID-19? No / Unsure 11/02/2021 12:32 PM EDT documented as of this encounter Plan of Treatment Not on file documented as of this encounter Visit Diagnoses Not on filedocumented in this encounter Care Teams Label Fuser Tender Relationship Specialty Start Date End Date Shaylee Pace MD The [address] [address] PCP - Insurance 04/04/17 12/16/22 Shaylee Pace MD The [address] [address] PCP - General 02/09/19 Jillian Chung, RN Registered Nurse Gastroenterology 05/29/23 documented as of this encounter
--- OUTSIDE RECORDS SUMMARY | 2024-05-20 22:49 | XMS_ITS | Encounter Summary ---
Author Organization [facility] Address 1 [facility] Main Number: [phone] (12/11) [place] [address] Care Team Providers Care Aquaculture Program Director Name Role Phone Shaylee Pace MD Unavailable [phone] Shaylee Paec MD Primary Care Provider [phone] Jillian Chung RN Unavailable Unavailable Reason for Visit * Reason Comments Automated Refill Request Encounter Details Date Type Department Care Team (Late st Contact Info) Description 05/09/2018 Refill Pediatric Diabetes and Endocrinology [address] [place] [phone] Felisha Kothari MD Hyperprolactinemia Social History Tobacco [...] hyperfunction documented in this encounter Care Teams Aquaculture Program Director Relationship Specialty Start Date End Date Shaylee Pace MD [address] [address] PCP - Insurance 04/04/17 12/16/22 Shaylee Pace MD [address] [address] PCP - General 02/09/19 Jillian Chung, RN Registered Nurse Gastroenterology 05/29/23 documented as of this encounter
--- OUTSIDE RECORDS SUMMARY | 2024-05-20 22:49 | XMS_ITS | Encounter Summary ---
Author Organization [facility] Address 1 [facility] Main Number: [phone] (12/11) [place] [address] Care Team Providers Care Stonemason Supervisor Name Role Phone Shaylee Pace MD Unavailable [phone] Shaylee Pace MD Primary Care Provider [phone] Jillian Chung RN Unavailable Unavailable Reason for Visit * Reason Comments Automated Refill Request Encounter Details Date Type Department Care Team (Late st Contact Info) Description 04/26/2022 Refill Endocrinology + Nutrition [address] [place] [phone] Vani Espinoza MD [address] [place] [address] Social History Tobacco Use Types Packs/Day Years Used Date Smoking Tobacco: Never Smokeless Tobacco: Never Alcohol Use Standard Drinks/Week Comments No 0 (1 standard drink = 0.6 oz pur e alcohol) Housing Answer Date Recorded What is your living situation today? I have a [facility] place to live 11/02/2021 [...] on filedocumented in this encounter Care Teams Stonemason Supervisor Relationship Specialty Start Date End Date Shaylee Pace MD [address] [address] PCP - Insurance 04/04/17 12/16/22 Shaylee Pace MD The [address] [address] PCP - General 02/09/19 Jillian Chung, RN Registered Nurse Gastroenterology 05/29/23 documented as of this encounter
--- OUTSIDE RECORDS SUMMARY | 2024-05-20 22:49 | XMS_ITS | Clinical Summary ---
Author Organization [facility] Address 1 [facility] [address] Main Number: [phone] (12/11) [place] [address] Care Team Providers Care Memorial Mason Name Role Phone Shaylee Pace MD Primary Care Provider [phone] Jillian Chung RN Unavailable Unavailable Allergies Active [...] Dates Next Due Influenza unspecified, historical 02/02/2017 Family History Medical History Relation Name Comments No Known Problems Brother 3 Brothers Diabetes Mellitus Father Not close Hypertension Mother Close Anxiety disorder Sister 3 Sisters Asthma Sister 3 Sisters Diabetes Mellitus Sister 3 Sisters Relation Name Status Comments Brother 3 Brothers Alive Father Not close Alive Mother Close Alive Sister 3 Sisters Alive Social History Tobacco Use Types Packs/Day Years Used Date Smoking Tobacco: Never Passive Smoke Exposure: Never Smokeless Tobacco: Never Tobacco Cessation:Counseling Given: No Alcohol Use Standard Drinks/Week Comments Yes 0 (1 standard drink = 0.6 oz pur e alcohol) 1-2x monthly Housing Answer Date Recorded What is your living situation today? I have a [facility] place to live 09/06/2022 Sex and [...] 05/14/2023 9:01 AM EST Plan of Treatment Health Maintenance Due Date Last Done Comments HIV Lifetime Screening 2001 Hepatitis B sAg Lifetime Screening 2001 Hepatitis C Antibody Lifetime Screening 2001 THRIVE SCREENING 2001 Oral Health Screen 03/11/2002 MMR VACCINES (1 of 1 - Standard series) 2002 HEIP Disability Screen 2006 BEHAVIORAL HEALTH SCREEN 2013 Psych Substance Use Screen 2013 VARICELLA VACCINES (1 of 2 - 13+ 2-dose series) 2014 CHLAMYDIA SCREENING 2016 HPV VACCINES (1 - 3-dose series) 2016 Relationship Safety Screening 2016 DTAP/TDAP VACCINE (1 - Tdap) 2020 HEPATITIS B VACCINES (1 of 3 - 19+ 3-dose series) 2020 Cervical Cancer Screening 2022 Colposcopy 2022 PAP SMEAR 2022 Pap + HPV 2022 COVID-19 Vaccine ( season) 2023 05/24/2021, 11/01/2020, 10/05/2020 INFLUENZA VACCINE (#1) 2023 , 03/29/2023, 02/26/2022, Additional history exists Zoster Vaccine (1 of 2) 10/10/2051 Diabetes Screening Discontinued 02/20/2023, 0 09/06/2022, 03/08/2022, Additional history exists LIPID PANEL Discontinued 02/20/2023, 10/13/2020 HEPATITIS A VACCINES Aged Out No long er eligible based on patient's age to complete this topic HIB VACCINES Aged Out No longer eligi ble based on patient's age to complete this topic IPV VACCINES Aged Out No longer eligi ble based on patient's age to complete this topic MENINGOCOCCAL ACWY Aged Out No longer eligible based on patient's age to complete this topic Pneumonia Vaccine 0-64 Aged Out No lo nger eligible based on patient's age to complete this topic ROTAVIRUS VACCINES Aged Out No longer eligible based on patient's age to complete this topic Procedures Procedure Name Priority Date/Time Associated Diagnosis Comments LIPID PANEL Routine 02/20/2023 3:14 PM EDT Class 3 obesity Pituitary microadenoma HEMOGLOBIN A1C Routine 02/20/2023 3:14 PM EDT Class 3 obesity Pituitary microadenoma from Last 3 Months or Most Recently Relevant to Health Maintenance Results * Hemoglobin a1c (02/20/2023 3:14 PM EDT) Hemoglobin A1C 5.2 4.0 - 6.0 % 02/20/2023 5:08 PM EDT [facility] Comment:The Real hemoglobi n A1c assay should not be used to diagnose or monitor diabetes in patients with altered red cell lifespan, such as homozygous hemoglobin variants, Hb SC, HbF > 5%, and hemolytic anemia. 02/20/2023 3:14 PM EDT 02/20/2023 3:15 PM EDT Vani Espinoza MD LAB BLOOD ORDERABLES [facility] CLIA [id number] [place] [address], * (ABNORMAL) Lipid panel (02/20/2023 3:14 PM [...] EDT Vani Espinoza MD LAB BLOOD ORDERABLES [facility] CLIA [id number] [place] [address], from Last 3 Months or Most Recently Relevant to Health Maintenance Care Teams Memorial Mason Relationship Specialty Start Date End [place] [address] PCP - General 02/09/19 Jillian Chung, RN Registered Nurse Gastroenterology 05/29/23
--- OUTSIDE RECORDS SUMMARY | 2024-05-20 22:49 | XMS_ITS | Encounter Summary ---
Author Organization [facility] Address 1 [facility] Main Number: [phone] (12/11) [place] [address] Care Team Providers Care Talent Acquisition Coordinator Name Role Phone Shaylee Pace MD Primary Care Provider Jillian Chung RN Unavailable Unavailable Reason for Visit * Reason Comments Automated Refill Request Encounter Details Date Type Department Care Team (Late st Contact Info) Description 04/12/2023 Refill Endocrinology + Nutrition [address] [place] [phone] Robina Smith MARKETING INTE[place] [address] Slow transit constipation Social History Tobacco Use Types Packs/Day Years Used Date Smoking Tobacco: Never Smokeless Tobacco: Never Alcohol Use Standard Drinks/Week Comments No 0 (1 standard drink = 0.6 oz pur e alcohol) Housing Answer Date Recorded What is your living situation today? I have a [facility] to live 09/06/2022 Sex and Gender Information Value Date Recorded Sex Assigned at Female 09/04/2022 3:11 PM EDT Gender Identity Female 05/17/2021 7:18 AM EST Sexual Orientation Patient's sexual zak entation is not listed 04/01/2023 10:52 AM EST documented as of this encounter Plan of Treatment Not on file documented as of this encounter Visit Diagnoses Diagnosis Slow transit constipation documented in this encounter Care Teams Talent Acquisition Coordinator Relationship Specialty Start Date End Date Shaylee Pace MD The [address] [address] PCP - General 02/09/19 Jillian Chung, RN Registered Nurse Gastroenterology 05/29/23 documented as of this encounter
--- OUTSIDE RECORDS SUMMARY | 2024-05-20 22:49 | XMS_ITS | Encounter Summary ---
Author Organization [facility] Address 1 [facility] Main Number: [phone] (12/11) [place] [address] Care Team Providers Care Director Visual Name Role Phone Shaylee Pace MD Unavailable [phone] Shaylee Pace MD Primary Care Provider [phone] Jillian Chung RN Unavailable Unavailable Reason for Visit * Reason Comments Automated Refill Request Encounter Details Date Type Department Care Team (Late st Contact Info) Description 11/13/2021 Refill Endocrinology + Nutrition [address] [place] [phone] Vani Espinoza MD [address] [facility] [place] [address] Social History Tobacco Use Types Packs/Day Years Used Date Smoking Tobacco: Never Smokeless Tobacco: Never Alcohol Use Standard Drinks/Week Comments No 0 (1 standard drink = 0.6 oz pur e alcohol) Housing Answer Date Recorded What is your living situation today? I have a [facility] place to live 11/02/2021 Sex and [...] on filedocumented in this encounter Care Teams Director Visual Relationship Specialty Start Date End Date Shaylee Pace MD The [address] [address] PCP - Insurance 04/04/17 12/16/22 Shaylee Pace MD The [address] [address] PCP - General 02/09/19 Jillian Chung, RN Registered Nurse Gastroenterology 05/29/23 documented as of this encounter
--- OUTSIDE RECORDS SUMMARY | 2024-05-20 22:49 | XMS_ITS | Encounter Summary ---
Author Organization [facility] r Address [address] [facility] Main Number: [phone] (12/11) [place] [address] Care Team Providers Care Lace Roller Name Role Phone Shaylee Pace MD Primary Care Provider Jillian Chung RN Unavailable Unavailable Encounter Details Date Type Department Care Team (Late st Contact Info) Description 06/11/2023 Telephone Bariatrics [address] [place] [address], [address] [place] [address] Rigoberto Barnard MD [address] [place] [address], [address] [place] [address] Social History Tobacco Use Types Packs/Day Years Used Date Smoking Tobacco: Never Passive Smoke Exposure: Never Smokeless Tobacco: Never Alcohol Use Standard Drinks/Week Comments Yes 0 (1 standard drink = 0.6 oz pur e alcohol) 1-2x monthly Housing Answer Date Recorded What is your living situation today? I have a [facility] to live 09/06/2022 Sex and Gender Information Value Date Recorded Sex Assigned at Female 09/04/2022 3:11 PM EDT Gender Identity Female 05/17/2021 7:18 AM EST Sexual Orientation Patient's sexual zak entation is not listed 04/01/2023 10:52 AM EST documented as of this encounter Miscellaneous Notes * Telephone Encounter - Ramonita Stevens MA - 06/11/2023 2:30 PM EST patient calling in ready for final review . bypass documented in this encounter Plan of Treatment Not on file documented as of this encounter Visit Diagnoses Not on filedocumented in this encounter Care Teams Lace Roller Relationship Specialty Start Date End Date Shaylee Pace MD [address] [address] PCP - General 02/09/19 Jillian Chung, RN Registered Nurse Gastroenterology 05/29/23 documented as of this encounter
--- NOTE | 2024-05-20 23:50 | ED_ITS ---
HPI - Nausea/Vomiting/Diarrhea General Chief complaint: Nausea/Vomiting/Diarrhea Stated complaint: dehydration Time Seen by Provider: 05/20/24 22:56 History of Present Illness HPI Narrative: Patient is a 23-year-old female with a history of having bariatric surgery in [place] 2 weeks ago. Earlier today patient had some solid and then had some burning sensation in her esophagus. She was able to tolerated bed she feels any small amount of food can cause her to have some reflux. Patient then came to the ED after contacting her primary surgeon in [place]. Patient is here visiting family. Denies any chest pain. Her symptom has completely resolved. Prior to me arriving talking to her she was eating ice chip on her own. Having no difficulties. Having no symptoms. Patient has no other medical history. She has larger in size with a BMI of 36. Related Data Allergies Allergy/AdvReac Type Severity Reaction Status Date / Time shellfish derived [shellfish] Allergy Hives Verified 05/20/24 18:43 Review of Systems 2 Review of Systems: Positive nausea earlier positive reflux type symptoms earlier Yes all other systems are reviewed and are negative PMFSH Past Medical History Attestation statement: The following information was validated with the patient. Social History Social History Smoked in Last 30 Days: No Use of substances other than those prescribed or required for medical reasons: No Advance Directives: No Advance Directives Information Provided: No Do you have a plan to hurt others: No Plan Patient : No Physical Exam 2 Vital Signs: Vital Signs: Last Vital Signs Temp 98.2 F 05/20/24 20:33 Pulse 67 05/20/24 20:33 Resp 16 05/20/24 20:33 BP 121/78 05/20/24 20:33 Pulse Ox 98 05/20/24 20:33 O2 Del Method Room Air 05/20/24 20:33 BMI result Body Mass Index 35.9 Appearance: Alert. Oriented X3. No acute distress. Eyes: Pupils equal, round and reactive to light. ENT: Pharynx normal. Neck: Normal inspection. Neck supple. No lymph nodes noted. No crepitus CVS: Normal heart rate and rhythm. Pulses normal. Normal S1 and S2 Respiratory: No respiratory distress. Breath sounds normal. No Wheezing. No rales Abdomen: Soft and nontender. No rigidity. No distention. good BS x4 Skin: Skin warm and dry. Normal skin color. Normal skin turgor. Extremities: No lower extremity edema. Neurovascular intact to all extremities. No Lacerations. No Rash Neuro: Oriented X 3. No motor deficit. No sensory deficit. Moving all extermities. No slurred speech Medications Administered Discontinued Medications Generic Name Dose Route Start Last Admin Trade Name Freq PRN Reason Stop Dose Admin Sodium Chloride 1,000 mls @ 999 mls/hr 05/20/24 23:45 05/21/24 00:01 Ns IV 05/21/24 00:45 999 mls/hr .Q1H1M [facility] Administration Medical Decision Making Medical Decision Making [facility] Narrative: Patient currently has no symptoms. Well-appearing. White count is 13. Abdominal exam is soft nontender. Patient's LFTs are normal. Lipase is normal there is no evidence for biliary or pancreatic issue. test is negative. No related issue. Patient's symptom has resolved. She was able to tolerate p.o.. Her case was discussed with patient's primary bypass surgeon from [place]. [place] comfortable with giving IV fluids then discharged without a CT scan at this time. She is currently in stable condition. Differential Diagnosis Differential Diagnoses: The differential diagnosis associated with the presentation includes Perforation, reflux, nausea Admission/Observation Consideration of admission/observation: Escalation of care including admission/observation considered Consult Healthcare Provider Management of the patient was discussed with: Stencil Cutter (Surgery at [facility]) Lab Data [facility] Lab Attestation statement: I reviewed the patient's lab results. 05/20/24 18:55 05/20/24 18:55 Labs: Lab Results 05/20/24 Range/Units 18:55 WBC 13.2 H (4.8-10.8) X10*3/uL RBC 5.01 (4.20-5.50) X10*6/uL Hgb 13.3 (12.0-16.0) g/dl Hct 40.4 (37.0-47.0) % MCV 80.6 (80.0-98.0) fL MCH 26.5 L (27.0-33.0) pg MCHC 32.9 (31.0-35.0) g/dl RDW 12.8 (11.0-16.0) % Plt Count 377 (160-400) X10*3/uL MPV 10.5 (9.4-12.3) fL Immature Gran % (Auto) 0.3 (0.0-0.4) % Neut % (Auto) 74.8 H (45-73) % Lymph % (Auto) 19.1 L (20-40) % [place] % (Auto) 4.9 (2-11) % Eos % (Auto) 0.6 (0-4) % Baso % (Auto) 0.3 (0-2) % Lymph # (Auto) 2.5 (1.2-4.9) X10*3/uL [place] # (Auto) 0.7 (0.1-1.2) X10*3/uL Eos # (Auto) 0.1 (0.0-0.4) X10*3/uL Baso # (Auto) 0.0 (0.0-0.2) X10*3/uL Abs Immat Gran (auto) 0.04 H (0.00-0.03) X10*3/uL Absolute Neuts (auto) 9.9 H (2.0-8.3) x10*3/uL Absolute Nucleated RBC 0.000 (0.0-0.012) X10*3/uL Nucleated RBC % (auto) 0.0 (0.0-0.2) /100WBC Sodium 138 (135-145) mmol/L Potassium 4.1 (3.3-5.1) mmol/L Chloride 103 (96-108) mmol/L Carbon Dioxide 23 (22-29) mmol/L Anion Gap 16 (12-20) BUN 11 (9-16) mg/dL Creatinine 0.72 (0.5-1.4) mg/dL Estim Creat Clear Calc 136.9 Estimated GFR > 60 Random Glucose 64 (60-115) mg/dL Calcium 9.8 (8.4-10.2) mg/dL Magnesium 1.8 (1.6-2.6) mg/dL Total Bilirubin 0.5 (0.0-1.0) mg/dL AST 21 (5-31) U/L ALT 23 (0-31) U/L Alkaline Phosphatase 70 (39-117) U/L Total Protein 8.4 H (6.5-8.0) g/dL Albumin 4.5 (3.5-5.0) g/dL Lipase 30 (8-78) U/L Beta HCG, Quant < 2 mIU/mL Chronic Conditions History of having larger in size. BMI of 36. Discharge Plan Discharge Clinical Impression: Acid reflux Patient Disposition: Home, Self-Care Instructions: Dehydration (ED) Referrals: Physician,Katya J [Physician] - 05/25/24 (Please follow-up with ) Print Language: [place]
[2024-05-21] MEDS: 0.9 % Sodium Chloride 1,000 ML 999 ML IV (00:01)
[2024-05-21 00:50] VITALS: BP 92/60; PULSE 58; RESP 16; TEMP 36.5; O2SAT 98
[2024-05-21 01:14] VITALS: BP 92/60; PULSE 58; RESP 16; TEMP 36.5; O2SAT 98
== END 2024-05-21 01:16 | disposition home or self-care (01) ==
PROVIDERS: Physician Assistant Medical; Emergency Provider Emergency Medicine Emergency Medical Services; PCP Pediatrics
DX: K21.9 Gastro-esophageal reflux disease without esophagitis (principal); R11.2 Nausea with vomiting, unspecified; E86.0 Dehydration; Z98.84 Bariatric surgery status; Z79.899 Other long term (current) drug therapy
CPT/HCPCS: 36415; 80053; 83690; 83735; 84702; 85025; 96360; 99284